=== PATIENT | female | born 1985 | race Caucasian/White ===

== ENCOUNTER 2016-06-24 09:39 | Emergency (ER) | payer BC, OTHER ==
[2016-06-24] MEDS ORDERED: TDaP 0.5 ML VIAL IM.VACC ONE (09:47)
[2016-06-24] MEDS ORDERED: KETOROLAC 60 MG/2 ML VIAL IM ONE (10:14)
[2016-06-24] MEDS ORDERED: LIDOCAINE/EPI 1% MDV 50 ML ONE (12:23)
== END 2016-06-24 14:08 | disposition home or self-care (01) ==
LOC: ER 09:39
DX: S61.512A Laceration without foreign body of left wrist, initial encounter (principal); F17.290 Nicotine dependence, other tobacco product, uncomplicated; W25.XXXA Contact with sharp glass, initial encounter; Y93.G1 Activity, food preparation and clean up; Y92.009 Unspecified place in unspecified non-institutional (private) residence as the place of occurrence of the external cause; Z23 Encounter for immunization; Z79.899 Other long term (current) drug therapy
CPT/HCPCS: 90471; 96372